=== PATIENT | male | born 1955 | race Caucasian/White ===

== ENCOUNTER 2018-10-18 14:43 | Inpatient (IN) | payer MEDICARE, BC ==
[2018-10-18] VITALS (369 sets, daily range): BP systolic 163–187; BP diastolic 94–99; PULSE 64–76; TEMP 97.6–98.9; O2SAT 92–99
[~2018-10-18] VITALS: Ht 172.7 cm; Wt 98.4 kg
[2018-10-18 15:30] LABS: BASO % 0.1 % (0.0-2.0); EOS # 0.1 (0.0-0.7); EOS % 0.9 % (0-4.0); GRAN # 5.8 (1.4-6.5); GRAN % 73.3 % (42.2-75.2); HEMATOCRIT 45.5 % (42.0-52.0); HEMOGLOBIN 15.6 g/dl (13.5-18.0); LYMPH # 1.2 (1.2-3.4); LYMPH % 15.7 % (20.0-51.0); MEAN CELL VOLUME 84 fl (80.0-100.0); MEAN CORPUSCULAR HEMOGLOBIN 29 pg (27.0-31.0); MEAN CORPUSCULAR HGB CONC 34 g/dl (33.0-37.0); MEAN PLATELET VOLUME 10.6 fl (7.4-10.4); MONO # 0.8 (0.1-0.6); MONO % 9.6 % (1.7-9.3); PLATELET COUNT 157 K/mm3 (130-400)
[2018-10-18] MEDS ORDERED: COZAAR 25MG25 MG/TAB PO (15:31)
[2018-10-18] MEDS ORDERED: TOPROL XL 25MG25 MG PO (15:32)
[2018-10-18] MEDS ORDERED: ZYLOPRIM 100MG100 MG PO (15:32)
[2018-10-18 15:35] LABS: PROTHROMBIN TIME 10.9 SECONDS (9.7-12.8)
[2018-10-18 15:38] LABS: PARTIAL THROMBOPLASTIN TIME 31.9 SECONDS (26.0-37.0)
[2018-10-18 15:43] LABS: BILIRUBIN,TOTAL 0.8 mg/dL (0.0-1.0); CALCIUM 9.3 mg/dL (8.4-10.2); CREATININE, serum 1.01 mg/dL (0.66-1.25); TOTAL PROTEIN 6.8 gm/dL (6.4-8.2)
[2018-10-18 15:48] LABS: C-REACTIVE PROTEIN 0.5 mg/dL (0.0-0.9)
[2018-10-18 15:55] LABS: TROPONIN-I 0.641 ng/mL (0.000-0.034)
[2018-10-18 18:37] LABS: PARTIAL THROMBOPLASTIN TIME 93.3 SECONDS (26.0-37.0)
[2018-10-19] VITALS (754 sets, daily range): BP systolic 108–156; BP diastolic 73–101; PULSE 24–98; TEMP 97–98.3; O2SAT 90–99
[2018-10-19 07:26] LABS: BASO % 0.2 % (0.0-2.0); EOS # 0.1 (0.0-0.7); EOS % 1.9 % (0-4.0); GRAN # 3.9 (1.4-6.5); GRAN % 65.8 % (42.2-75.2); HEMATOCRIT 45.4 % (42.0-52.0); HEMOGLOBIN 15.3 g/dl (13.5-18.0); LYMPH # 1.1 (1.2-3.4); LYMPH % 18.2 % (20.0-51.0); MEAN CELL VOLUME 85 fl (80.0-100.0); MEAN CORPUSCULAR HEMOGLOBIN 29 pg (27.0-31.0); MEAN CORPUSCULAR HGB CONC 34 g/dl (33.0-37.0); MEAN PLATELET VOLUME 10.3 fl (7.4-10.4); MONO # 0.8 (0.1-0.6); MONO % 13.4 % (1.7-9.3); PLATELET COUNT 144 K/mm3 (130-400); RED BLOOD COUNT 5.32 M/mm3 (4.20-5.60); REDCELL DISTRIBUTION WIDTH-CV 14.3 % (11.5-14.5)
[2018-10-19 08:05] LABS: ALBUMIN 3.8 gm/dL (3.5-5.0); BILIRUBIN,TOTAL 1.3 mg/dL (0.0-1.0); CALCIUM 9.1 mg/dL (8.4-10.2); CHOLESTEROL RISK RATIO 5.6; CREATININE, serum 0.83 mg/dL (0.66-1.25); POTASSIUM 4.2 mmol/L (3.4-5.0); TOTAL PROTEIN 6.6 gm/dL (6.4-8.2)
[2018-10-19 08:25] LABS: TROPONIN-I 8.39 ng/mL (0.000-0.034)
[2018-10-20] VITALS (893 sets, daily range): BP systolic 119–169; BP diastolic 75–110; PULSE 63–87; TEMP 97.9–98.6; O2SAT 83–98
[2018-10-20 04:06] LABS: BASO % 0.3 % (0.0-2.0); EOS # 0.1 (0.0-0.7); GRAN # 4.3 (1.4-6.5); GRAN % 66.4 % (42.2-75.2); HEMATOCRIT 44.1 % (42.0-52.0); HEMOGLOBIN 15.1 g/dl (13.5-18.0); LYMPH # 1.2 (1.2-3.4); LYMPH % 17.9 % (20.0-51.0); MEAN CELL VOLUME 86 fl (80.0-100.0); MEAN CORPUSCULAR HEMOGLOBIN 29 pg (27.0-31.0); MEAN CORPUSCULAR HGB CONC 34 g/dl (33.0-37.0); MEAN PLATELET VOLUME 11.1 fl (7.4-10.4); MONO # 0.8 (0.1-0.6); MONO % 12.6 % (1.7-9.3); PLATELET COUNT 148 K/mm3 (130-400); RED BLOOD COUNT 5.15 M/mm3 (4.20-5.60); REDCELL DISTRIBUTION WIDTH-CV 14.6 % (11.5-14.5)
[2018-10-21] VITALS (393 sets, daily range): BP systolic 127–134; BP diastolic 77–90; PULSE 61–110; TEMP 97.6–98.6; O2SAT 91–98
[2018-10-21 05:35] LABS: BASO % 0.2 % (0.0-2.0); EOS # 0.1 (0.0-0.7); EOS % 2.2 % (0-4.0); GRAN # 3.9 (1.4-6.5); GRAN % 66.4 % (42.2-75.2); HEMATOCRIT 43.3 % (42.0-52.0); HEMOGLOBIN 14.8 g/dl (13.5-18.0); LYMPH # 1.1 (1.2-3.4); LYMPH % 18.8 % (20.0-51.0); MEAN CELL VOLUME 86 fl (80.0-100.0); MEAN CORPUSCULAR HEMOGLOBIN 29 pg (27.0-31.0); MEAN CORPUSCULAR HGB CONC 34 g/dl (33.0-37.0); MEAN PLATELET VOLUME 11.1 fl (7.4-10.4); MONO # 0.7 (0.1-0.6); MONO % 11.7 % (1.7-9.3); PLATELET COUNT 152 K/mm3 (130-400); RED BLOOD COUNT 5.05 M/mm3 (4.20-5.60); REDCELL DISTRIBUTION WIDTH-CV 14.5 % (11.5-14.5)
[2018-10-21 05:49] LABS: CALCIUM 9.9 mg/dL (8.4-10.2); CREATININE, serum 0.87 mg/dL (0.66-1.25); POTASSIUM 4.3 mmol/L (3.4-5.0)
[2018-10-21] MEDS ORDERED: LIPITOR 80MG80 MG PO (10:33)
[2018-10-21] MEDS ORDERED: BRILINTA90 MG PO (10:33)
[2018-10-21] MEDS ORDERED: ASPIRIN E.C. 8181 MG PO (10:33)
== END 2018-10-21 12:30 | disposition home or self-care (01) | DRG 247 ==
LOC: COL.ER 14:43 → ICU 16:30
PROVIDERS: Emergency Medicine; Internal Medicine Interventional Cardiology; Physician Assistant
PROC: 027034Z Dilation of Coronary Artery, One Artery with Drug-eluting Intraluminal Device, Percutaneous Approach (ICD-10-PCS; principal; 2018-10-19)
PROC: B2111ZZ Fluoroscopy of Multiple Coronary Arteries using Low Osmolar Contrast (ICD-10-PCS; 2018-10-19)
PROC: B2151ZZ Fluoroscopy of Left Heart using Low Osmolar Contrast (ICD-10-PCS; 2018-10-19)
PROC: 4A023N7 Measurement of Cardiac Sampling and Pressure, Left Heart, Percutaneous Approach (ICD-10-PCS; 2018-10-19)
PROC: 027135Z Dilation of Coronary Artery, Two Arteries with Two Drug-eluting Intraluminal Devices, Percutaneous Approach (ICD-10-PCS; 2018-10-20)
PROC: 02703ZZ Dilation of Coronary Artery, One Artery, Percutaneous Approach (ICD-10-PCS; 2018-10-20)
PROC: B2111ZZ Fluoroscopy of Multiple Coronary Arteries using Low Osmolar Contrast (ICD-10-PCS; 2018-10-20)
DX: I21.4 Non-ST elevation (NSTEMI) myocardial infarction (principal); I10 Essential (primary) hypertension; E78.5 Hyperlipidemia, unspecified; K21.9 Gastro-esophageal reflux disease without esophagitis
CPT/HCPCS: 99223-AI; 99232-AI; 99239; C1725; C1760; C1769; C1874; C1887; C1894; C9600; C9601; J0583; J1644; J2250; J2270; J3010; J7030; Q9967

== ENCOUNTER 2018-10-22 09:15 | Emergency (ER) | payer BC ==
[~2018-10-22] VITALS: Ht 172.7 cm; Wt 100.0 kg
[~2018-10-22 09:15] MED LIST: ASPIRIN E.C. 8181 MG PO; BRILINTA90 MG PO; COZAAR 25MG25 MG/TAB PO; LIPITOR 80MG80 MG PO; TOPROL XL 25MG25 MG PO; ZYLOPRIM 100MG100 MG PO
[2018-10-22 09:23] VITALS: BP 115/55; PULSE 95; TEMP 98
== END 2018-10-22 11:15 | disposition home or self-care (01) ==
LOC: COL.ER 09:15
DX: L76.22 Postprocedural hemorrhage of skin and subcutaneous tissue following other procedure (principal); I25.10 Atherosclerotic heart disease of native coronary artery without angina pectoris; Z95.5 Presence of coronary angioplasty implant and graft; Z79.82 Long term (current) use of aspirin